=== PATIENT | female | born 1990 | race Caucasian/White ===

== ENCOUNTER 2020-05-04 23:12 | Emergency (ER) | payer MEDICAID, SELFPAY ==
[2020-05-04 23:15] VITALS: BP 169/86; PULSE 79; RESP 16; TEMP 36.7; O2SAT 100; BMI 53.2
--- NOTE | 2020-05-05 00:01 | ED_ITS ---
HPI - Dental/Oral General: Chief complaint: Dental/Oral Stated complaint: oral pain Time Seen by Provider: 05/04/20 23:33 History of Present Illness: HPI Narrative: 29-year-old female patient presents to the emergency room with dental pain. She reports history of dental avulsion approximately 1 to 2 months prior. She states dental pain started at noon today . She has attempted [id number] Orajel and ibuprofen. She does not have a dentist MD Complaint: tooth pain Teeth map: 1. Duration: constant Severity: moderate Relieving factors: NSAIDs Exacerbating factors: chewing, cold and heat Context: history of dental caries and poor dental care Associated symptoms: Reports no associated symptoms; Denies fever(s) Treatment prior to arrival: topical analgesic Review of Systems General: Reports: 10 or more systems reviewed and unremarkable except in HPI and below Const: Denies: fever(s), chills or diaphoresis Eyes: Denies: blurry vision or eye redness ENMT: Reports: dental pain; Denies: throat pain, dry mouth, disequilibrium or nasal discharge Card: Denies: chest pain, palpitations or irregular heart rhythm Resp: Denies: dyspnea, productive cough, non-productive cough or wheezing GI: Denies: abdominal pain, nausea or vomiting : Denies: difficulty voiding or dysuria Musc: Denies: back pain Skin/Breast: Denies: rash or pruritus Neuro: Denies: headache(s), weakness in extremities or behavioral changes Psych: Denies: anxiety or depression Hakan/Lymph: Denies: easy bruising PFS ED PFSH: Social History (Updated 11/26/19 @ 17:12 by Jade Pavon LPN) Smoking and tobacco status: current every day smoker Female Reproductive History: Date of last menstrual period: 03/30/20 Physical Exam Const: COMMON NORMALS: no acute distress, patient oriented x3, healthy appearing and alert GENERAL APPEARANCE: cooperative, comfortable and well hydrated HENMT: COMMON NORMALS: normocephalic, atraumatic, Normal external nose present and moist oral mucous membranes HEAD & SCALP: normal to inspection, normocephalic and atraumatic FACE & SINUS: normal facial exam, sinuses nontender and face symmetric; no sinus tenderness NOSE: Normal external nose present MOUTH: Normal oral and palatal mucosa present TEETH & GINGIVA IMAGES: 1. Gumline edema with dental avulsion and caries present. Suspect abscess. THROAT: posterior oropharynx normal Eye: COMMON NORMALS: Equal, round and reactive pupils present and EOMs intact bilaterally GENERAL EYE: appearance normal, both eyes and all related structures PUPIL: Yes Equal, round and reactive pupils present Neck/C-Spine: COMMON NORMALS: full ROM and no lymphadenopathy GENERAL: Yes normal visual inspection and Yes trachea midline CERVICAL SPINE: Yes cervical ROM normal Lymph: LYMPHATIC: no lymphadenopathy noted Chest: COMMONS NORMALS: normal inspection of the chest Resp: COMMON NORMALS: normal respiratory effort and clear to auscultation bilaterally AUSCULTATION: clear to auscultation bilaterally Cardio: COMMON NORMALS: regular rhythm, S1 normal heart sound present and S2 normal heart sound present RHYTHM: regular rhythm HEART SOUNDS: S1 normal heart sound present and S2 normal heart sound present GI: COMMON NORMALS: Soft to palpation and non-tender INSPECTION: Yes normal to inspection PALPATION: Yes Soft to palpation : COMMON NORMALS: Yes no CVA tenderness BLADDER/KIDNEY EXAM: Yes no CVA tenderness Back/Pelvis: COMMON NORMALS: no CVA tenderness and thoracic and lumbar spine normal to inspection Extremity: COMMON NORMALS: normal to inspection and capillary refill normal Neuro: COMMON NORMALS: patient oriented x3 and no focal motor deficits SENSORIUM/ORIENTATION: Yes alert Psych: COMMON NORMALS: mental status grossly normal, Normal thought process present and cooperative ACTIVITY/MOTOR BEHAVIOR: Yes appropriate eye contact THOUGHT PROCESS: Normal thought process present Skin: COMMON NORMALS: no rashes or lesions noted and turgor normal GENERAL SKIN EXAM: no rashes or lesions noted and turgor normal Course Vital Signs: Vital signs: Vital Signs Temperature 98.0 F 05/04/20 23:15 Pulse Rate 79 05/04/20 23:15 Respiratory Rate 16 05/04/20 23:15 Blood Pressure 169/86 05/04/20 23:15 Pulse Oximetry 100 05/04/20 23:15 Discharge Plan Discharge Patient Disposition: Home Clinical Impression: Dental caries, Dental abscess, Toothache Condition: Stable Prescriptions: New clindamycin HCl 300 mg capsule 300 mg PO QID 10 Days Qty: 40 RF: 0 Lidocaine Viscous 2 % solution 10 ml topical Q3H PRN (Reason: dental pain) Qty: 15 RF: 0 Discharge Orders: Discharge Order (Routine); Ordered 05/05/20 Ordered By: Nery Vazquez Referrals: Lizzette Ralph APN [Primary Care Provider] - Discharge Diet: GI Soft Discharge Activity: Resume usual activity Patient Instructions: Dental Abscess (ED), Dental Caries (ED), Toothache (ED) Activity Restrictions/Additional Instructions: Return to the emergency department if you develop difficulty breathing, swelling under the chin or redness of the face. 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
[2020-05-05] MEDS: clindamycin 150 mg Capsule 300 MG PO (00:32)
[2020-05-05] MEDS: ketorolac 60 mg/2 mL INJ IM (00:33)
== END 2020-05-05 00:54 | disposition home or self-care (01) ==
PROVIDERS: Emergency Provider Nurse Practitioner Family; PCP Nurse Practitioner
DX: K02.9 Dental caries, unspecified (principal); K04.7 Periapical abscess without sinus; F17.210 Nicotine dependence, cigarettes, uncomplicated
CPT/HCPCS: 12345; 96372; 99281; 99283; J1885

== ENCOUNTER → 2020-06-09 14:46 | Outpatient (BNVA) | payer OTHER, SELFPAY | PROVIDERS: PCP Nurse Practitioner; Visit Provider Nurse Practitioner Family | DX: Z20.828 Contact with and (suspected) exposure to other viral communicable diseases (principal) | CPT/HCPCS: 87635 ==

== ENCOUNTER → 2021-04-30 09:42 | Outpatient (BNVA) | payer MEDICAID, SELFPAY | PROVIDERS: PCP Nurse Practitioner; Visit Provider Nurse Practitioner Family | DX: Z20.822 Contact with and (suspected) exposure to COVID-19 (principal) | CPT/HCPCS: 87635 ==

== ENCOUNTER 2021-06-13 17:09 | Emergency (ER) | payer MEDICAID, SELFPAY ==
[2021-06-13 17:32] VITALS: BP 166/103; PULSE 69; RESP 12; TEMP 37.2; O2SAT 94; BMI 61.5
--- NOTE | 2021-06-13 17:37 | XRR_ITS ---
PROCEDURE INFORMATION: Exam: XR Chest Exam date and time: 06/13/2021 5:37 PM Age: 31 years old Clinical indication: Cough; Additional info: Cough, SOB TECHNIQUE: Imaging protocol: XR of the chest. Views: 1 view. Total images: 1 COMPARISON: CT Abdomen/Pelvis Renal [id number] 06/26/2016 9:31 PM FINDINGS: Lungs: No visible active interstitial or alveolar airspace disease. Pleural spaces: Unremarkable. No pleural effusion. No pneumothorax. Heart/Mediastinum: Cardiac structures and configuration with cardiac size upper limits of normal. Bones/joints: Unremarkable. Other findings: Marked obesity. XR/XR chest 1V portable [id number] IMPRESSION: Nonacute.
[2021-06-13 21:06] LABS: Adenovirus Not Detected (NOT DETECT); Chlamydia Pneumoniae Not Detected (NOT DETECT); Coronavirus 229E,HKU1,NL63,OC4 Not Detected (NOT DETECT); Human Metapneumovirus Detected (NOT DETECT); Human Rhinovirus/Enterovirus Not Detected (NOT DETECT); Influenza A Not Detected (NOT DETECT); Influenza A H1 Not Detected (NOT DETECT); Influenza A H1-2009 Not Detected (NOT DETECT); Influenza A H3 Not Detected (NOT DETECT); Influenza B Not Detected (NOT DETECT); Mycoplasma Pneumoniae Not Detected (NOT DETECT); Parainfluenza Virus Type 1 Not Detected (NOT DETECT); Parainfluenza Virus Type 2 Not Detected (NOT DETECT); Parainfluenza Virus Type 3 Not Detected (NOT DETECT); Parainfluenza Virus Type 4 Not Detected (NOT DETECT); Respiratory Syncytial Virus A Not Detected (NOT DETECT); Respiratory Syncytial Virus B Not Detected (NOT DETECT); SARS-COV-2 Not Detected (NOT DETECT)
[2021-06-13 21:08] LABS: Human Metapneumovirus Detected (NOT DETECT); Human Rhinovirus/Enterovirus Not Detected (NOT DETECT); Results from Genmark
--- NOTE | 2021-06-13 21:50 | W.ED.FEVER ---
Documented by User: WIL Mccabe 06/13/21 22:26 HPI - Fever General: Chief Complaint: Fever Stated Complaint: n/v, fever, cough Time Seen by Provider: 06/13/21 21:49 History of Present Illness: HPI Narrative: 31-year-old female comes in today with complaints of cough and fever for the last 2 days. Patient appears mildly unwell but not toxic. Patient appears no acute distress. Patient denies any chronic medical problems or recurrent respiratory infections. Patient does have a history of smoking which she stopped 1 year ago. Patient also reports she had to use inhalers when she was a teenager. Review of Systems General: Reports: 10 or more systems reviewed and unremarkable except in HPI and below Const: Reports: fever(s) Resp: Reports: non-productive cough PFSH ED PFSH: Social History (Updated 04/30/21 @ 08:24 by Nydia Alonzo NP) Smoking and tobacco status: former smoker Female Reproductive History: Date of last menstrual period: 03/30/20 Physical Exam Const: COMMON NORMALS: no acute distress and patient oriented x3 GENERAL APPEARANCE: cooperative HENMT: COMMON NORMALS: normocephalic, TM's normal bilaterally and Normal external nose present HEAD & SCALP: normal to inspection and normocephalic NOSE: Normal external nose present TYMPANIC MEMBRANE: TM's normal bilaterally MOUTH: Normal oral and palatal mucosa present THROAT: posterior oropharynx normal Eye: GENERAL EYE: appearance normal, both eyes and all related structures Neck/C-Spine: COMMON NORMALS: full ROM Lymph: LYMPHATIC: no lymphadenopathy noted Chest: COMMONS NORMALS: normal inspection of the chest Resp: COMMON NORMALS: normal respiratory effort and clear to auscultation bilaterally EFFORT & INSPECTION: Yes able to speak in complete sentences AUSCULTATION: clear to auscultation bilaterally Cardio: COMMON NORMALS: regular rate and regular rhythm RATE: regular rate RHYTHM: regular rhythm GI: COMMON NORMALS: non-tender Extremity: COMMON NORMALS: normal to inspection Neuro: COMMON NORMALS: patient oriented x3 and moves all extremities Psych: COMMON NORMALS: mental status grossly normal and cooperative Skin: COMMON NORMALS: no rashes or lesions noted GENERAL SKIN EXAM: no rashes or lesions noted Course Vital Signs: Vital signs: Vital Signs Temperature 98.3 F 06/13/21 22:08 Pulse Rate 66 06/13/21 22:08 Respiratory Rate 18 06/13/21 22:08 Blood Pressure 155/90 06/13/21 22:08 Pulse Oximetry 97 06/13/21 22:08 MDM - Fever MDM Narrative: Medical decision making narrative: Patient comes in today with cough and fever for the last 2 to 3 days. On exam patient appears mildly unwell but not toxic. Lungs are clear to auscultation. Posterior pharynx is pink and moist. No nasal drainage is noted. Patient does have a mild wheeze that clears with cough. Differential diagnosis includes asthma, viral syndrome, bronchitis. COVID-19 test was negative. Chest x-ray did not show any infiltrates. Reviewed exam with patient we will treat with clindamycin 304 times a day for the next 7 days. Patient was given 1 dose of dexamethasone 8 mg in the ER. Patient will also be put on albuterol 2 puffs every 4 hours as needed for cough or shortness of breath. Patient reported understanding of care plan need for follow-up or return to the ER. Lab Data: Labs: Lab Results 06/13/21 06/13/21 19:20 21:07 Coronavirus 229E ( PCR) Not detected (NOT DETECT) Human Metapneumovi r PCR Detected A (NOT DETECT) Entero/Rhino (PCR) Not detected (NOT DETECT) SARS-CoV-2 (PCR) Not detected (NOT DETECT) Discharge Plan Discharge Patient Disposition: Home Clinical Impression: Acute bronchitis Qualifiers: Bronchitis organism: unspecified organism Qualified Code(s): J20.9 - Acute bronchitis, unspecified Condition: Stable Prescriptions: New clindamycin HCl 300 mg capsule 300 mg PO QID 7 Days Qty: 28 RF: 0 Discharge Orders: Discharge ED (Routine); Ordered 06/13/21 Ordered By: Jann Vega Discharge Diet: Usual diet Discharge Activity: Increase activity as tolerated Patient Instructions: Acute Bronchitis (ED) Activity Restrictions/Additional Instructions: Drink plenty of fluids. Take antibiotics as directed. Follow-up with primary care in 3 days for recheck. Return to the ER for worsening symptoms or new concerns. Coding Level of Care Code ED Medical Accounts Receivable Specialist for Lorena Fwd Exam Comprehensive Documented by User: Dallas Chandra DO 06/14/21 02:09 HPI - Fever General: Chief Complaint: Fever Stated Complaint: n/v, fever, cough Time Seen by Provider: 06/13/21 21:49 PFSH ED PFSH: Social History (Updated 04/30/21 @ 08:24 by Nydia Alonzo NP) Smoking and tobacco status: former smoker Course Vital Signs: Vital signs: Vital Signs Temperature 98.3 F 06/13/21 22:08 Pulse Rate 66 06/13/21 22:08 Respiratory Rate 18 06/13/21 22:08 Blood Pressure 155/90 06/13/21 22:08 Pulse Oximetry 97 06/13/21 22:08 MDM - Fever MDM Narrative: Medical decision making narrative: This patient was originally seen by WIL Otto. I agree with his history, evaluation, and treatment. Lab Data: Labs: Lab Results 06/13/21 06/13/21 19:20 21:07 Coronavirus 229E ( PCR) Not detected (NOT DETECT) Human Metapneumovi r PCR Detected A (NOT DETECT) Entero/Rhino (PCR) Not detected (NOT DETECT) SARS-CoV-2 (PCR) Not detected (NOT DETECT) Discharge Plan Discharge Patient Disposition: Home Clinical Impression: Acute bronchitis Qualifiers: Bronchitis organism: unspecified organism Qualified Code(s): J20.9 - Acute bronchitis, unspecified Condition: Stable Prescriptions: New clindamycin HCl 300 mg capsule 300 mg PO QID 7 Days Qty: 28 RF: 0 Discharge Orders: Discharge ED (Routine); Ordered 06/13/21 Ordered By: Jann Vega Discharge Diet: Usual diet Discharge Activity: Increase activity as tolerated Patient Instructions: Acute Bronchitis (ED) Activity Restrictions/Additional Instructions: Drink plenty of fluids. Take antibiotics as directed. Follow-up with primary care in 3 days for recheck. Return to the ER for worsening symptoms or new concerns. Coding Level of Care Code ED Medical Accounts Receivable Specialist for Lorena Fwd Exam Comprehensive
[2021-06-13] MEDS: clindamycin 150 mg Capsule 300 MG PO (22:02)
[2021-06-13] MEDS: dexamethasone 4 mg Tablet 8 MG PO (22:02)
[2021-06-13 22:08] VITALS: BP 155/90; PULSE 66; RESP 18; TEMP 36.8; O2SAT 97
[2021-06-13] MEDS: albuterol 8 gm MDI 2 PUFF INHALATION (22:10)
== END 2021-06-13 22:09 | disposition home or self-care (01) ==
PROVIDERS: Emergency Medicine; Emergency Provider Nurse Practitioner Family
DX: J20.9 Acute bronchitis, unspecified (principal); Z87.891 Personal history of nicotine dependence; Z20.822 Contact with and (suspected) exposure to COVID-19
CPT/HCPCS: 71045; 87635; 87801; 94640; 99283; J3535; J8540

== ENCOUNTER 2021-11-13 23:10 | Emergency (ER) | payer MEDICAID, SELFPAY ==
--- NOTE | 2021-11-13 23:13 | XRR_ITS ---
PROCEDURE INFORMATION: Exam: XR Chest Exam date and time: 11/13/2021 11:35 PM Age: 31 years old Clinical indication: Chest wall pain; Additional info: Cp TECHNIQUE: Imaging protocol: XR of the chest. Views: 1 view. COMPARISON: CR XR chest 1V portable [id number] 06/13/2021 9:43 PM FINDINGS: Lungs: Unremarkable. No consolidation. Pleural spaces: Unremarkable. No pleural effusion. No pneumothorax. Heart/Mediastinum: Unremarkable. No cardiomegaly. Bones/joints: Unremarkable. XR/XR chest 1V portable [id number] IMPRESSION: No acute findings.
--- NOTE | 2021-11-13 23:13 | ECG_ITS ---
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 Measurements Intervals [place] Rate: 91 P: 53 KS: 138 QRS: 38 QRSD: 103 T: 54 QT: 346 QTc: 426 Interpretive Statements SINUS RHYTHM No previous ECG available for comparison Electronically Signed On 11-14-2021 20:28:03 CDT by Stefan Alonzo M.D. [id number]
[2021-11-13 23:26] VITALS: BP 166/99; PULSE 89; RESP 18; TEMP 36.8; O2SAT 98; BMI 61.5
[2021-11-13 23:38] LABS: Basophils % 0.3 %; Eosinophils # 0.1 10^3/uL (0.0-0.8); Eosinophils % 1.2 %; Hematocrit 41.5 % (37.0-47.0); Hemoglobin 12.7 g/dL (11.5-15.3); Lymphocytes # 2.3 10^3/uL (0.8-4.8); Lymphocytes % 26.2 %; Mean Corpuscular HGB Conc 30.6 g/dL (30.0-36.0); Mean Corpuscular Hemoglobin 25.1 pg (28.0-34.0); Mean Platelet Volume 10.8 fL (7.4-10.4); Monocytes # 0.4 10^3/uL (0.2-0.9); Monocytes % 4.6 %; Neutrophils # 5.98 10^3/uL (1.8-7.7); Neutrophils % 67.5 %; Nucleated Red Blood Cells % 0 %; Platelet Count 298 10^3/cmm (130-400); Red Blood Count 5.06 10^6/uL (4.1-5.3); Red Cell Distribution Width 14.6 % (12.1-15.1); White Blood Count 8.9 10^3/uL (4.0-10.0)
[2021-11-13 23:45] VITALS: BP 159/76; PULSE 90; RESP 22; O2SAT 100
--- NOTE | 2021-11-13 23:56 | ED_ITS ---
HPI - Chest Pain General: Chief Complaint: Chest Pain Stated Complaint: CP Time Seen by Provider: 11/13/21 23:25 Source: patient History of Present Illness: 31-year-old female with no prior history of heart disease or other medical problems. She presents with chest discomfort that started this evening while she was working. 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 This was between 7 and 8pm she says. Pain is sharp, located in the lower chest and radiates to the sides of her chest bilaterally. She notes for the past couple of days, she has had some dizziness, blurry vision. No fever. No cough. She is not really short of breath. Pain seems to come and go. She is having no pain currently. MD complaint: chest pain Pertinent past history: other Onset (ago): hour(s) Prior episodes: No Onset: during exertion Pain location: substernal and epigastric Pain radiation: other Quality: sharp Relieving factors: nothing Exacerbating factors: nothing Associated symptoms: Reports leg edema (Chronic bilateral); Deny abdominal pain, diaphoresis, dyspnea or fever(s) Review of Systems Const: Denies: fever(s) or diaphoresis Eyes: Reports: change in vision ENMT: Denies: throat pain Card: Reports: chest pain Resp: Denies: dyspnea GI: Denies: abdominal pain Musc: Denies: back pain Neuro: Reports: dizziness [facility] ED PFSH: Social History Smoking and tobacco status: former smoker Female Reproductive History: Date of last menstrual period: 09/13/21 Physical Exam Const: COMMON NORMALS: no acute distress GENERAL APPEARANCE: cooperative; not ill appearing NUTRITIONAL APPEARANCE: obese HENMT: COMMON NORMALS: normocephalic, atraumatic and Normal external nose present HEAD & SCALP: normocephalic and atraumatic FACE & SINUS: normal facial exam and face symmetric NOSE: Normal external nose present Eye: COMMON NORMALS: Equal, round and reactive pupils present and EOMs intact bilaterally PUPIL: Yes Equal, round and reactive pupils present Neck/C-Spine: GENERAL: Yes trachea midline Chest: CHEST: Yes Symmetrical chest wall rise Resp: COMMON NORMALS: normal respiratory effort, No use of accessory muscles and clear to auscultation bilaterally AUSCULTATION: clear to auscultation bilaterally Cardio: COMMON NORMALS: regular rate and regular rhythm RATE: regular rate RHYTHM: regular rhythm GI: COMMON NORMALS: Normal to inspection, nondistended, normoactive bowel tam nds present, Soft to palpation and non-tender PALPATION: Yes Soft to palp ation Extremity: COMMON NORMALS: normal to inspection and no pedal edema Neuro: ADONIS COMA SCALE: document GCS findings Adonis coma scale eye opening: Spontaneous Carey coma scale verbal response: Orientated Carey coma scale motor response: Obey commands Carey coma scale total score: 15 Course Vital Signs: Vital signs: Vital Signs Temperature 98.2 F 11/13/21 23: Pulse Rate 89 11/13/21 23: Respiratory Rate 18 11/13/21 23: Blood Pressure 166/99 11/13/21 23: Pulse Oximetry 98 11/13/21 23:26 MDM - Chest Pain Medical Decision Making EKG shows a normal sinus rhythm with normal axis and intervals. Rate is 90. No ST changes chest x-ray is negative. CBC is normal. Potassium is 3.4. Troponin at baseline is 6. She has had pain for several hours, 1 would expect this to be on the rise by now. Her lipase and liver enzymes are benign as well. She has a nontender belly. She does have a some reproducible tenderness to the chest wall. Some of her symptoms sound like they could be GI related. She will be discharged Lab Data : 11/13/21 23:30 11/13/21 23:30 Radiology Impressions Chest X-Ray 11/13/21 23:13 IMPRESSION: No acute findings. Laboratory Results WBC 8.9 10^3/uL (4.0-10.0) 11/13/21 23:30 RBC 5.06 10^6/uL (4.1-5.3) 11/13/21 23:30 Hgb 12.7 g/dL (11.5-15.3) 11/13/21 23: Hct 41.5 % (37.0-47.0) 11/13/21 23: MCV 82.0 fl (81-99) 11/13/21 23: MCH 25.1 pg (28.0-34.0) L 11/13/21 23: MCHC 30.6 g/dL (30.0-36.0) 11/13/21: RDW 14.6 % (12.1-15.1) 11/13/21 23: Plt Count 298 10^3/cmm (130-400) 11/13/21 23: MPV 10.8 fL (7.4-10.4) H 11/13/21 23: Neut % (Auto) 67.5 % 11/13/21 23: Lymph % (Auto) 26.2 % 11/13/21 23: Charlton % (Auto) 4.6 % 11/13/21 23: Eos % (Auto) 1.2 % 11/13/21 23: Baso % (Auto) 0.3 % 11/13/21: Neut # (Auto) 5.98 10^3/uL (1.8-7.7) 11/13/21: Lymph # (Auto) 2.3 10^3/uL (0.8-4.8) 11/13/21 23: Charlton # (Auto) 0.4 10^3/uL (0.2-0.9) 11/13/21 23: Eos # (Auto) 0.1 10^3/uL (0.0-0.8) 11/13/21 23: Baso # (Auto) 0.0 10^3/uL (0.0-0.1) 11/13/21 23: Nucleated RBC % (auto) 0 % 11/13/21 23: Nucleated RBCs # 0.0 /100WBC 11/13/21 23: Sodium 141 mmol/L (136-145) 11/13/21 23: Potassium 3.4 mmol/L (3.5-5.1) L 11/13/21 23: Chloride 103 mmol/L (98-107) 11/13/21 23: Carbon Dioxide 24 mmol/L (22-29) 11/13/21 23: Anion Gap 17.4 (5-19) 11/13/21 23:30 BUN 14 mg/dL (6-20) 11/13/21 23:30 Creatinine 0.6 mg/dL (0.5-0.9) 11/13/21 23:30 GFR Calculation 117.4 mL/min (90-130) 11/13/21 23:30 Glucose 96 mg/dL (65-115) 11/13/21 23:30 Calculated Osmolality 292 mOsm/kg (285-295) 11/13/21 23:30 Calcium 9.2 mg/dL (8.5-10.5) 11/13/21 23:30 Total Bilirubin 0.3 mg/dL (0.15-1.2) 11/13/21 23:30 AST 18 U/L (0-32) 11/13/21 23:30 ALT 32 U/L (0-33) 11/13/21 23:30 Alkaline Phosphatase 74 IU/L (35-105) 11/13/21 23: Troponin T Baseline 6 ng/L (0-10) 11/13/21 23: Total Protein 7.5 g/dL (6.6-8.7) 11/13/21 23: Albumin 4.4 g/dL (3.5-5.2) 11/13/21: Globulin 3.1 g/dL (1.3-4.6) 11/13/21 23: Lipase 10 U/L (13-60) L 11/13/21 23:30 HCG, Qual Negative (Negative) 11/13/21 23:30 Discharge Plan Discharge Patient Disposition: Home Clinical Impression: Chest pain Condition: Stable Prescriptions: New Prevacid 30 mg capsule,delayed release(DR/EC) 30 mg PO DAILY Qty: 30 0RF Discharge Orders: Discharge ED (Routine); Ordered 11/14/21 Ordered By: Dallas Chandra Patient Instructions: Chest Pain (ED) Activity Restrictions/Additional Instructions: Return for repeated episodes of chest discomfort, shortness of breath, fever, vomiting liquids, other concerning symptoms. Medication as directed. See your doctor in follow-up Coding Level of Care Code ED Neurology Director for Margueriteg Fwd Exam Comprehensive
[2021-11-14] VITALS: BP 161/87; PULSE 85; RESP 18; O2SAT 99
[2021-11-14 00:07] LABS: Alanine Aminotransferase 32 U/L (0-33); Albumin Level 4.4 g/dL (3.5-5.2); Alkaline Phosphatase 74 IU/L (35-105); Anion Gap 17.4 (5-19); Aspartate Amino Transferase 18 U/L (0-32); Blood Urea Nitrogen 14 mg/dL (6-20); Calcium 9.2 mg/dL (8.5-10.5); Carbon Dioxide 24 mmol/L (22-29); Chloride 103 mmol/L (98-107); Globulin 3.1 g/dL (1.3-4.6); Glomerular Filtration Rate 117.4 mL/min (90-130); Glucose 96 mg/dL (65-115); Osmolality Calculated 292 mOsm/kg (285-295); Potassium 3.4 mmol/L (3.5-5.1); Sodium 141 mmol/L (136-145); Total Bilirubin 0.3 mg/dL (0.15-1.2); Total Protein 7.5 g/dL (6.6-8.7); Troponin(5th) Baseline 6 ng/L (0-10)
[2021-11-14 00:11] LABS: HCG, Serum Qual Negative (Negative); Lipase 10 U/L (13-60)
[2021-11-14 00:30] VITALS: BP 130/77; PULSE 83; RESP 24; O2SAT 97
[2021-11-14 00:55] VITALS: BP 135/83; PULSE 76; RESP 18; O2SAT 99
== END 2021-11-14 01:03 | disposition home or self-care (01) ==
PROVIDERS: Physician Assistant; Emergency Provider Emergency Medicine
DX: R07.9 Chest pain, unspecified (principal); Z87.891 Personal history of nicotine dependence
CPT/HCPCS: 71045; 80053; 83690; 84484; 84703; 85025; 93005; 99284

== ENCOUNTER → 2023-07-28 18:34 | Outpatient (BNVA) | payer MEDICAID, SELFPAY | PROVIDERS: PCP Nurse Practitioner Family; Visit Provider Nurse Practitioner | DX: S99.912A Unspecified injury of left ankle, initial encounter (principal); X58.XXXA Exposure to other specified factors, initial encounter | CPT/HCPCS: 73610 ==

== ENCOUNTER → 2024-05-08 11:42 | Outpatient (BNVA) | payer MEDICAID, SELFPAY | PROVIDERS: PCP Nurse Practitioner Family; Visit Provider Family Medicine | DX: J02.9 Acute pharyngitis, unspecified (principal) | CPT/HCPCS: 87071; 87880 ==

== ENCOUNTER 2024-11-16 17:43 | Emergency (ER) | payer MEDICAID, SELFPAY ==
[2024-11-16 17:49] VITALS: BP 145/72; PULSE 85; RESP 20; TEMP 36.4; O2SAT 98
--- NOTE | 2024-11-16 18:10 | XRR_ITS ---
PROCEDURE INFORMATION: Exam: XR Lumbosacral Spine Exam date and time: 11/16/2024 8:03 PM Age: 34 years old Clinical indication: Lumbago with sciatica; Right; Lower back pain with RT sciatica; HX of same pain previously-no known injury TECHNIQUE: Imaging protocol: Radiologic exam of the lumbosacral spine. Views: 2 or 3 views. COMPARISON: No relevant prior studies available. FINDINGS: Bones/joints: [id number] L5/S1 disc space narrowing. Soft tissues: Unremarkable. XR/XR lumbar spine 2-3V* [id number] IMPRESSION: [id number] L5/S1 disc space narrowing.
[2024-11-16 19:53] LABS: HCG, Serum Qual Negative (Negative)
[2024-11-16 20:46] LABS: Bilirubin Urine Negative (Negative); Blood Urine Negative (Negative); Glucose Urine UA Negative (Normal); Ketones Urine Negative (Negative); Leukocyte Esterase Urine 1+ (Negative); Nitrate Urine Negative (Negative); Protein Urine Negative (Negative); Specific Gravity, Urine 1.024 (1.005-1.030); Urine Appearance Turbid (CLEAR); Urine Color Yellow (Yellow)
[2024-11-16 20:51] LABS: Add Urine Microscopic? YES; Bacteria Urine Trace /hpf; Hyaline Casts Urine 1.65 /lpf; RBC Urine 0-2 /hpf (0-2); Squamous Epithelial Cell Urine 0-5 /hpf (0-5)
--- NOTE | 2024-11-16 23:12 | W.ED.BACK ---
HPI - Back Pain/Injury General: Chief Complaint: Back Pain/Injury Stated Complaint: lower back pain Time Seen by Provider: 11/16/24 22:47 History of Present Illness: 34-year-old female with a history of back pain on and off. She says she has had several bouts of sciatica since she was 17 years old. Related Data Home Medications ?Medication ?Instructions ?Recorded ?Confirmed albuterol sulfate 90 mcg/actuation 1 inh inhalation QID 12/23/21 05/08/24 aerosol inhaler (Ventolin HFA) labetalol 200 mg tablet 200 mg PO BID 05/17/23 05/08/24 Previous Rx's ?Medication ?Instructions ?Recorded cephalexin 500 mg capsule 500 mg PO TID 7 days #21 caps 11/16/24 cyclobenzaprine 10 mg tablet 10 mg PO Q8H #14 tabs 11/16/24 ketorolac 10 mg tablet 10 mg PO TID PRN pain #10 tabs 11/16/24 Allergies Allergy/AdvReac Type Severity Reaction Status Date / Time adhesive Allergy Unknown Verified 11/16/24 17:52 amoxicillin Allergy ALGY-Hives Verified 05/08/24 11:35 Penicillins Allergy ALGY-Hives Verified 05/08/24 11:35 Sulfa (Sulfonamide Allergy ALGY-Difficulty Verified 05/08/24 11:35 Antibiotics) Breathing PFSH ED PFSH: Social History Smoking and tobacco/nicotine status: unknown if used tobacco/nicotine Physical Exam Const: COMMON NORMALS: no acute distress GENERAL APPEARANCE: cooperative; not ill appearing and not frail appearing Eye: COMMON NORMALS: Equal, round and reactive pupils present and EOMs intact bilaterally PUPIL: Yes Equal, round and reactive pupils present Neck/C-Spine: GENERAL: Yes trachea midline Chest: CHEST: Yes Symmetrical chest wall rise Resp: COMMON NORMALS: normal respiratory effort, No retractions and No use of accessory muscles Cardio: COMMON NORMALS: regular rate and regular rhythm RATE: regular rate RHYTHM: regular rhythm Back/Pelvis: OTHER: Exam the lumbar spine reveals tenderness at L5-S1 in the midline and just to the right of midline. There is no left-sided tenderness. Minimal paraspinal tenderness. No other significant lumbar midline tenderness. Straight leg raise test is positive for radicular pain to the ankle on the right. Not the left. Sensation is intact. Pulses are normal. Extremity: COMMON NORMALS: no pedal edema Neuro: ADONIS COMA SCALE: document GCS findings Dahlgren coma scale eye opening: Spontaneous Dahlgren coma scale verbal response: Orientated Adonis coma scale motor response: Obey commands Dahlgren coma scale total score: 15 SENSORY EXAM: Yes extremities (intact) Psych: COMMON NORMALS: speech normal SPEECH: Yes normal speech Skin: COMMON NORMALS: no rashes or lesions noted GENERAL SKIN EXAM: no rashes or lesions noted Course Vital Signs: Vital signs: Vital Signs Temperature 97.6 F 11/16/24 17:49 Pulse Rate 89 11/16/24 23:35 Respiratory Rate 20 H 11/16/24 17:49 Blood Pressure 124/80 11/16/24 23:35 Pulse Oximetry 97 11/16/24 23:35 Oxygen Delivery Me thod Room Air 11/16/24 17:49 MDM - Back Pain/Injury Medical Decision Making No saddle anesthesia. No red flag symptoms otherwise such as loss of bowel or bladder control, etc. She does have mild L5-S1 disc space narrowing. Offered steroids, but she declined stating they cause palpitations. She requested anti-inflammatories and muscle relaxers which are given. Outpatient follow-up. Return if worsening. Labs Radiology Impressions Lumbar Spine X-Ray 11/16/24 18:10 IMPRESSION: [id number] L5/S1 disc space narrowing. Laboratory Results HCG, Qual Negative (Negative) 11/16/24 19:32 Urine Color Yellow (Yellow) 11/16/24 20:38 Urine Appearance Turbid (CLEAR) A 11/16/24 20:38 Urine pH 7.0 (5-7) 11/16/24 20:38 Ur Specific [place] 1.024 (1.005-1.030) 11/16/24 20:38 Urine Protein Negative (Negative) 11/16/24 20:38 Urine Glucose (UA) Negative (Normal) 11/16/24 20:38 Urine Ketones Negative (Negative) 11/16/24 20:38 Urine Blood Negative (Negative) 11/16/24 20:38 Urine Nitrate Negative (Negative) 11/16/24 20:38 Urine Bilirubin Negative (Negative) 11/16/24 20:38 Urine Urobilinogen 1.0 mg/dL (Negative) 11/16/24 20:38 Ur Leukocyte Esterase 1+ (Negative) A 11/16/24 20:38 Urine RBC 0-2 /hpf (0-2) 11/16/24 20:38 Urine WBC 11-20 /hpf (0-5) H 11/16/24 20:38 Ur Squamous Epith Cells 0-5 /hpf (0-5) 11/16/24 20:38 Amorphous Sediment Not Reportable 11/16/24 20:38 Urine Bacteria Trace /hpf (NONE) 11/16/24 20:38 Hyaline Casts 1.65 /lpf 11/16/24 20:38 All radiology interpretation(s) finalized by discharge Discharge Plan Discharge Patient Disposition: Home Clinical Impression: Sciatica, UTI (urinary tract infection) Condition: Stable Prescriptions: New ketorolac 10 mg tablet 10 mg PO TID PRN (Reason: pain) Qty: 10 0RF cyclobenzaprine 10 mg tablet 10 mg PO Q8H Qty: 14 0RF cephalexin 500 mg capsule 500 mg PO TID 7 Days Qty: 21 0RF No Action albuterol sulfate [Ventolin HFA] 90 mcg/actuation HFA aerosol inhaler 1 inh inhalation QID labetalol 200 mg tablet 200 mg PO BID Discharge Orders: Discharge ED (Routine); Ordered 11/16/24 Ordered By: Dallas Chandra Referrals: Marcy Boyle FNP-C [Primary Care Provider, Family Practice] - 4-7 days Patient Instructions: Urinary Tract Infection in Women (DC), Sciatica (ED), Opioid Safety, Pain Management Print Language: Danish Coding Level of Care Code ED Residential Real Estate Assistant for Lorena Stringer
[2024-11-16] MEDS: orphenadrine 30 mg/mL Inj 2 mL 60 MG IM (23:18)
[2024-11-16] MEDS: ketorolac 60 mg/2 mL INJ IM (23:19)
[2024-11-16 23:35] VITALS: BP 124/80; PULSE 89; O2SAT 97
== END 2024-11-16 23:25 | disposition home or self-care (01) ==
PROVIDERS: Emergency Provider Emergency Medicine; PCP Nurse Practitioner Family
DX: M54.30 Sciatica, unspecified side (principal); N39.0 Urinary tract infection, site not specified
CPT/HCPCS: 36415; 72100; 81001; 84703; 96372; 99284; J1885; J2360

== ENCOUNTER 2024-12-16 03:50 | Emergency (ER) | payer MEDICAID, SELFPAY ==
[2024-12-16 03:52] VITALS: BP 138/80; PULSE 70; RESP 16; TEMP 36.7; O2SAT 97; BMI 58.2
[2024-12-16 04:07] VITALS: BP 126/85; PULSE 78; O2SAT 97
[2024-12-16] MEDS: fluorescein 1 mg Strip EYE-BOTH (04:28)
--- NOTE | 2024-12-16 04:39 | W.ED.ANIMALB ---
HPI - Animal Bite General: Chief Complaint: Animal Bite Stated Complaint: Cat Sratched EYE Time Seen by Provider: 12/16/24 04:08 History of Present Illness: 34-year-old female who came home to her cat earlier this morning, and while playing with the cat, it scratched her right eye and right eyelid. She is experiencing eye pain with some mild blurry vision. Mild pain with eye movement. Related Data Home Medications ?Medication ?Instructions ?Recorded ?Confirmed albuterol sulfate 90 mcg/actuation 1 inh inhalation QID 12/23/21 05/08/24 aerosol inhaler (Ventolin HFA) labetalol 200 mg tablet 200 mg PO BID 05/17/23 05/08/24 Previous Rx's ?Medication ?Instructions ?Recorded cyclobenzaprine 10 mg tablet 10 mg PO Q8H #14 tabs 11/16/24 ketorolac 10 mg tablet 10 mg PO TID PRN pain #10 tabs 11/16/24 ketorolac 0.4 % eye drops 1 drp ophthalmic (eye) Q6H 4 days 12/16/24 #5 mL polymyxin B sulfate 10,000 1 drp ophthalmic (eye) QID 5 days 12/16/24 unit-trimethoprim 1 mg/mL eye drops #10 mL Allergies Allergy/AdvReac Type Severity Reaction Status Date / Time adhesive Allergy Unknown Verified 11/16/24 17:52 amoxicillin Allergy ALGY-Hives Verified 05/08/24 11:35 Penicillins Allergy ALGY-Hives Verified 05/08/24 11:35 Sulfa (Sulfonamide Allergy ALGY-Difficulty Verified 05/08/24 11:35 Antibiotics) Breathing PFSH ED PFSH: Social History Smoking and tobacco/nicotine status: unknown if used tobacco/nicotine Physical Exam Const: COMMON NORMALS: no acute distress GENERAL APPEARANCE: cooperative; not ill appearing HENMT: COMMON NORMALS: normocephalic, atraumatic and Normal external nose present HEAD & SCALP: normocephalic and atraumatic FACE & SINUS: normal facial exam and face symmetric NOSE: Normal external nose present Eye: COMMON NORMALS: Equal, round and reactive pupils present and EOMs intact bilaterally CORNEA: Yes fluorescein used and other (Abrasion lateral right eye) PUPIL: Yes Equal, round and reactive pupils present Resp: COMMON NORMALS: normal respiratory effort Skin: NARRATIVE SKIN EXAM: Minimal right upper eyelid swelling. No open wounds. Course Vital Signs: Vital signs: Vital Signs Temperature 98.1 F 12/16/24 03:52 Pulse Rate 78 12/16/24 04:07 Respiratory Rate 16 12/16/24 03:52 Blood Pressure 126/85 12/16/24 04:07 Pulse Oximetry 97 12/16/24 04:07 Oxygen Delivery Me thod Room Air 12/16/24 04:07 MDM - Animal Bite Medical Decision Making Corneal abrasion. Treat accordingly No radiology studies performed this visit Discharge Plan Discharge Patient Disposition: Home Clinical Impression: Corneal abrasion, right Condition: Stable Prescriptions: New ketorolac 0.4 % drops 1 drp ophthalmic (eye) Q6H 4 Days Qty: 5 0RF polymyxin B sulf-trimethoprim 10,000 unit- 1 mg/mL drops 1 drp ophthalmic (eye) QID 5 Days Qty: 10 0RF No Action albuterol sulfate [Ventolin HFA] 90 mcg/actuation HFA aerosol inhaler 1 inh inhalation QID labetalol 200 mg tablet 200 mg PO BID ketorolac 10 mg tablet 10 mg PO TID PRN (Reason: pain) Qty: 10 0RF cyclobenzaprine 10 mg tablet 10 mg PO Q8H Qty: 14 0RF Discharge Orders: Discharge ED (Routine); Ordered 12/16/24 Ordered By: Dallas Chandra Referrals: [facility] [Outside] - 1-3 days Patient Instructions: Corneal Abrasion (ED), Opioid Safety, Pain Management, Patient Portal & [facility] Instructions Activity Restrictions/Additional Instructions: Drops to the eye every 4 hours while awake for the next 5 days as indicated. No contacts. Call the eye surgery clinic at the number above later today for a follow-up appointment this week. Return for worsening vision despite treatment, any other concerns. Print Language: Iraqi Coding Level of Care Code ED Director Of Counseling for Lorena Stringer
[2024-12-16 04:48] VITALS: BP 130/84; PULSE 70; O2SAT 96
== END 2024-12-16 04:52 | disposition home or self-care (01) ==
PROVIDERS: Emergency Provider Emergency Medicine
DX: S05.01XA Injury of conjunctiva and corneal abrasion without foreign body, right eye, initial encounter (principal); W55.03XA Scratched by cat, initial encounter
CPT/HCPCS: 99283

== ENCOUNTER 2025-03-18 18:58 | Emergency (ER) | payer MEDICAID, SELFPAY ==
[2025-03-18 19:23] VITALS: BP 176/91; PULSE 80; RESP 18; TEMP 36.7; O2SAT 98; BMI 53.2
[2025-03-18 19:59] LABS: Hematocrit 38.0 % (36-47); Hemoglobin 12.00 g/dL (11.27-16.99); Mean Corpuscular HGB Conc 31.6 g/dL (30-55); Mean Corpuscular Hemoglobin 26.1 pg (27-33); Mean Corpuscular Volume 82.6 fl (85-98); Nucleated Red Blood Cells % 0 %; Platelet Count 295 10^3/cmm (157-399); Red Blood Count 4.60 10^6/uL (3.85-5.65); White Blood Count 7.86 10^3/uL (3.29-11.43)
[2025-03-18 20:00] VITALS: PULSE 74; O2SAT 100
[2025-03-18 20:12] LABS: Glucose Urine UA Negative (Normal); Nitrate Urine Negative (Negative)
[2025-03-18 20:16] LABS: HCG Qualitative Urine. Negative (Negative)
[2025-03-18 20:18] LABS: Alanine Aminotransferase 16 U/L (0-33); Albumin Level 4.1 g/dL (3.5-5.2); Alkaline Phosphatase 74 U/L (35-105); Anion Gap 13.7 (5-19); Aspartate Amino Transferase 11 U/L (0-32); Blood Urea Nitrogen 12 mg/dL (6-20); Calcium 9.2 mg/dL (8.5-10.5); Carbon Dioxide 27 mmol/L (22-29); Chloride 102 mmol/L (98-107); Creatinine Clr Calc Pharmacy 194.2372; Globulin 3.4 g/dL (1.3-4.6); Glucose 103 mg/dL (65-115); Osmolality Calculated 288 mOsm/kg (285-295); Potassium 3.7 mmol/L (3.5-5.1); Sodium 139 mmol/L (136-145); Total Protein 7.5 g/dL (6.6-8.7)
[2025-03-18 20:18] LABS: Specific Gravity, Urine 1.032 (1.005-1.030)
[2025-03-18 20:19] LABS: Lactic Sepsis W/Reflex 1.1 mmol/L (0.5-2.2)
--- NOTE | 2025-03-18 20:26 | ED_ITS ---
HPI - Abdominal Pain 2 General: Chief Complaint: Abdominal Pain Stated Complaint: N/V Pain in rt side/lower back Blood in urine Time Seen by Provider: 03/18/25 19:51 Source: patient Mode of arrival: ambulatory Limitations: no limitations History of Present Illness: Patient is a 34-year-old female who reports the Emergency Department complaining of nausea vomiting as well as pain to her low back and blood in her urine. States that she has a history of UTI and is feels similar just much worse. No abdominal pain however, and though she notes the blood was this morning states that it has since cleared up. She is not endorsing any dysuria. No changes in bowel habits. No fevers or chills, does report a history of ovarian cyst. She does note that walking makes the pain worse as well as movement at the low back. Has not taken any medications for the pain. Does note that the symptoms began this morning and have gradually worsened throughout the day. Her vitals are stable at this time, no other complaints. MD elicited complaint: abdominal pain Onset (ago): hour(s) Pain Consistency: constant Location: L flank and R flank Severity: severe Radiation: back Exacerbating factors: movement Relieving factors: rest Associated Symptoms: Reports hematuria, nausea and vomiting; Denies bloating, change in stool character, chills, constipation, diarrhea, dysuria, fever(s) and hematochezia Related Data Date of Last Menstrual Period: 12/24/24 Home Medications ?Medication ?Instructions ?Recorded ?Confirmed albuterol sulfate 90 mcg/actuation 1 inh inhalation QI D 12/23/21 05/08/24 aerosol inhaler (Ventolin HFA) labetalol 200 mg tablet 200 mg PO BID 05/17/2305/08 Previous Rx's ?Medication ?Instructions ?Recorded cyclobenzaprine 10 mg tablet 10 mg PO Q8H #14 tabs ketorolac 10 mg tablet 10 mg PO TID PRN pain #10 ta bs 11/16/24 ketorolac 10 mg tablet 10 mg PO Q8H PRN pain 5 days #15 03/18/25 tabs ondansetron 4 mg disintegrating 4 mg PO TID PRN nausea and 03/18/25 tablet vomiting #30 tabs Allergies Allergy/AdvReac Type Severity Reaction Status Date / Time adhesive Allergy Unknown Verified 03/18/25 19:30 amoxicillin Allergy ALGY-Hives Verified 03/18/25 19:30 Penicillins Allergy ALGY-Hives Verified 03/18/25 19:30 Sulfa (Sulfonamide Allergy ALGY-Difficulty Verified 03/18/25 19:30 Antibiotics) Breathing Review of Systems 2 General: Reports: 10 or more systems reviewed and unremarkable except in HPI and below Const: Denies: fever(s), chills, change in appetite, change in weight or diaphoresis ENMT: Denies: throat pain or hoarseness Card: Denies: chest pain, palpitations or lightheadedness Resp: Denies: dyspnea, productive cough or wheezing GI: Reports: nausea and vomiting; Denies: abdominal pain, diarrhea, constipation, bloating, change in stool character or hematochezia : Reports: flank pain and hematuria; Denies: difficulty voiding, dysuria, urinary frequency or urinary urgency Musc: Reports: back pain; Denies: neck pain Skin/Breast: Denies: rash or new lesions Neuro: Denies: headache(s) or dizziness PFSH ED 2 PFSH: Social History Smoking and tobacco/nicotine status: unknown if used tobacco/nicotine Female Reproductive History: Date of last menstrual period: 12/24/24 Physical Exam 2 Const: COMMON NORMALS: no acute distress, patient oriented x3, no limitations, alert and well nourished GENERAL APPEARANCE: cooperative and comfortable N UTRITIONAL APPEARANCE: obese (BMI 53) morbidly obese O RIENTATION/CONSCIOUSNESS: Yes awake Neck/C-Spine: COMMON NORMALS: full ROM, supple, no meningeal signs and no JVD Resp: COMMON NORMALS: normal respiratory effort, No retractions, No use of accessory muscles and clear to auscultation bilaterally AUSCULTATION: clear to auscultation bilaterally, no crackles, no rales, no rhonchi and no wheezes Cardio: COMMON NORMALS: no JVD, regular rate, regular rhythm, No gallops present (Cardio), No clicks present (Cardio), No murmurs present (Cardio) and No rub (Cardio) RATE: regular rate RHYTHM: regular rhythm GI: COMMON NORMALS: Soft to palpation, non-tender, No hepatosplenomegaly present and no masses INSPECTION: Yes central obesity AUSCULTATION: Yes normoactive bowel sounds PALPATION: Yes Soft to palpation, No Guarding due to palpation present (GI), No Rigid due to palpation and Yes No hepatosplenomegaly present RECTAL EXAM: deferred Back/Pelvis: OTHER: Reproducible paralumbar muscular tenderness to palpation Extremity: COMMON NORMALS: normal to inspection and full ROM Neuro: COMMON NORMALS: patient oriented x3, moves all extremities, no focal motor deficits and no sensory deficits noted SENSORIUM/ORIENTATION: Yes alert MENINGEAL SIGNS: Yes no meningeal signs Psych: COMMON NORMALS: mental status grossly normal, cooperative and speech normal SPEECH: Yes normal speech Skin: COMMON NORMALS: no rashes or lesions noted GENERAL SKIN EXAM: no rashes or lesions noted Course 2 Vital Signs: Vital signs: Vital Signs Temperature 98.1 F 03/18/25 19:23 Pulse Rate 61 03/18/25 21:17 Respiratory Rate 18 03/18/25 19:23 Blood Pressure 143/100 03/18/25 21:17 Pulse Oximetry 98 03/18/25 21:17 Oxygen Delivery Me thod Room Air 03/18/25 20:00 MDM - Abdominal Pain Medical Decision Making Patient presenting with bilateral flank pain and low back pain, history of UTI stating this feels similar but much worse. Symptoms were sudden onset this morning. No abdominal tenderness to palpation on exam. Morbidly obese appearing but nontoxic. Vitals have been stable. Is given Toradol for pain which helps. Her lab work is all unremarkable including normal CBC, CMP, and urinalysis not showing any signs of infection. With the reported symptoms I feel that an abdominal pelvis CT would be diagnostic at this juncture and with her reported improvement after Toradol suspect that this is chronic musculoskeletal back pain of which she also has a history of. I do think that she is stable for discharge home at this time with outpatient management, but if she has any worsening pain, or onset of other concerning symptoms such as worsening nausea vomiting, or fevers or chills to return to the emergency department for reevaluation. She agrees with this plan at this time. Lab Data 03/18/25 19:50 03/18/25 19:50 Labs/Radiology: Laboratory Results WBC 7.86 10^3/uL (3.29-11.43) 03/18/25 19:50 RBC 4.60 10^6/uL (3.85-5.65) 03/18/25 19:50 Hgb 12.00 g/dL (11.27-16.99) 03/18/25 19:50 Hct 38.0 % (36-47) 03/18/25 19:50 MCV 82.6 fl (85-98) L 03/18/25 19:50 MCH 26.1 pg (27-33) L 03/18/25 19:50 MCHC 31.6 g/dL (30-55) 03/18/25 19:50 RDW 12.9 % (12.1-15.1) 03/18/25 19:50 Plt Count 295 10^3/cmm (157-399) 03/18/25 19:50 MPV 10.3 fL (7.4-10.4) 03/18/25 19:50 Neut % (Auto) 68.7 % 03/18/25 19:50 Lymph % (Auto) 22.6 % 03/18/25 19:50 [place] % (Auto) 5.1 % 03/18/25 19:50 Eos % (Auto) 2.9 % 03/18/25 19:50 Baso % (Auto) 0.4 % 03/18/25 19:50 Neut # (Auto) 5.40 10^3/uL (1.8-7.7) 03/18/25 19:50 Lymph # (Auto) 1.8 10^3/uL (0.8-4.8) 03/18/25 19:50 [place] # (Auto) 0.4 10^3/uL (0.2-0.9) 03/18/25 19:50 Eos # (Auto) 0.2 10^3/uL (0.0-0.8) 03/18/25 19:50 Baso # (Auto) 0.0 10^3/uL (0.0-0.1) 03/18/25 19:50 Nucleated RBC % (auto) 0 % 03/18/25 19:50 Nucleated RBCs # 0.0 /100WBC 03/18/25 19:50 Sodium 139 mmol/L (136-145) 03/18/25 19:50 Potassium 3.7 mmol/L (3.5-5.1) 03/18/25 19:50 Chloride 102 mmol/L (98-107) 03/18/25 19:50 Carbon Dioxide 27 mmol/L (22-29) 03/18/25 19:50 Anion Gap 13.7 (5-19) 03/18/25 19:50 BUN 12 mg/dL (6-20) 03/18/25 19:50 Creatinine 0.6 mg/dL (0.5-0.9) 03/18/25 19:50 GFR Calculation 115.1 mL/min (90-130) 03/18/25 19:50 Glucose 103 mg/dL (65-115) 03/18/25 19:50 Calculated Osmolality 288 mOsm/kg (285-295) 03/18/25 19:50 Lactic Acid 1.1 mmol/L (0.5-2.2) 03/18/25 19:50 Calcium 9.2 mg/dL (8.5-10.5) 03/18/25 19:50 Total Bilirubin 0.3 mg/dL (0.15-1.2) 03/18/25 19:50 AST 11 U/L (0-32) 03/18/25 19:50 ALT 16 U/L (0-33) 03/18/25 19:50 Alkaline Phosphatase 74 U/L (35-105) 03/18/25 19:50 C-Reactive Protein 13.6 mg/L (0.0-4.9) H 03/18/25 19:50 Total Protein 7.5 g/dL (6.6-8.7) 03/18/25 19:50 Albumin 4.1 g/dL (3.5-5.2) 03/18/25 19:50 Globulin 3.4 g/dL (1.3-4.6) 03/18/25 19:50 HCG, Qual Negative (Negative) 03/18/25 20:00 Urine Color Yellow (Yellow) 03/18/25 20:00 Urine Appearance Clear (CLEAR) 03/18/25 20:00 Urine pH 5.0 (5-7) 03/18/25 20:00 Ur Specific [place] 1.032 (1.005-1.030) H 03/18/25 20:00 Urine Protein Trace (Negative) A 03/18/25 20:00 Urine Glucose (UA) Negative (Normal) 03/18/25 20:00 Urine Ketones Trace (Negative) 03/18/25 20:00 Urine Blood Negative (Negative) 03/18/25 20:00 Urine Nitrate Negative (Negative) 03/18/25 20:00 Urine Bilirubin Negative (Negative) 03/18/25 20:00 Urine Urobilinogen 1.0 mg/dL (Negative) 03/18/25 20:00 Ur Leukocyte Esterase Negative (Negative) 03/18/25 20:00 Amorphous Sediment Not Reportable 03/18/25 20:00 No radiology studies performed this visit Discharge Plan Discharge Patient Disposition: Home Clinical Impression: Musculoskeletal back pain Condition: Stable Prescriptions: New ketorolac 10 mg tablet 10 mg PO Q8H PRN (Reason: pain) 5 Days Qty: 15 0RF ondansetron 4 mg tablet,disintegrating 4 mg PO TID PRN (Reason: nausea and vomiting) Qty: 30 0RF No Action albuterol sulfate [Ventolin HFA] 90 mcg/actuation HFA aerosol inhaler 1 inh inhalation QID labetalol 200 mg tablet 200 mg PO BID ketorolac 10 mg tablet 10 mg PO TID PRN (Reason: pain) Qty: 10 0RF cyclobenzaprine 10 mg tablet 10 mg PO Q8H Qty: 14 0RF Discharge Orders: Discharge ED (Routine); Ordered 03/18/25 Ordered By: Iglesia Curiel Referrals: [facility], [Primary Care Provider] Patient Instructions: Patient Portal & [facility] Instructions Activity Restrictions/Additional Instructions: Low Back Pain Discharge Diagnosis: Acute musculoskeletal low back pain and bilateral flank pain, without evidence of infection or other serious pathology. Prognosis and Education: - Acute low back pain is highly likely to improve substantially within the first month, regardless of treatment. Most cases are self-limited and do not require imaging or specialist referral unless symptoms persist or worsen. - No evidence of infection, kidney involvement, or other serious etiology was found on laboratory evaluation. Activity and Self-Care: - Remain active as tolerated. Avoid bed rest; gentle movement and resumption of normal activities are encouraged, even if mild discomfort is present. - Superficial heat (e.g., heating pad or warm compress) may provide moderate pain relief and improve function. - Massage, spinal manipulation, or acupuncture may be considered if pain persists, but evidence for these is less robust. Pharmacologic Management: - Ketorolac (Toradol): Prescribed for short-term pain control. Use the lowest effective dose for the shortest duration necessary, given the risk of gastrointestinal and renal adverse effects. Assess for contraindications (history of peptic ulcer, renal impairment, etc.) before use. - Typical adult dosin mg orally every 4?6 hours as needed, not to exceed 5 days of therapy. Adjust dosing based on renal function and age. - Ondansetron (Zofran): Prescribed for nausea as needed. Standard dosing is 4?8 mg orally every 8 hours as needed. Additional Home Treatment Options: - Acetaminophen may be used in combination with NSAIDs for additional pain relief, though acetaminophen alone is not effective for acute low back pain. - Gentle stretching and aerobic exercise may be initiated as tolerated. - Avoid prolonged inactivity and maintain regular daily routines. Return Precautions: - Seek prompt medical attention for any of the following: - New or worsening weakness, numbness, or tingling in the legs - Loss of bowel or bladder control - Severe, unrelenting pain not responsive to medication - Fever, chills, or other signs of systemic illness - Persistent pain beyond 4?6 weeks, or inability to resume normal activities Follow-Up: - If symptoms do not improve within 2 months, or if there is concern for chronicity, consider referral for supervised exercise or behavioral therapy. - Early reassessment is warranted if pain worsens or new symptoms develop. Summary: - [employer] and [employer] recommend reassurance, education, activity as tolerated, and short-term NSAID use for acute low back pain, with adjunctive nonpharmacologic therapies as appropriate. Print Language: Pashto Coding Level of Care Code ED Carpentry Teacher for Lorena Stringer
[2025-03-18 21:17] VITALS: BP 143/100; PULSE 61; O2SAT 98
== END 2025-03-18 21:20 | disposition home or self-care (01) ==
PROVIDERS: Emergency Medicine; Emergency Provider Physician Assistant
DX: M54.89 Other dorsalgia (principal)
CPT/HCPCS: 36415; 80053; 81001; 81025; 83605; 85025; 86140; 87040; 96372; 99284; J1885

== ENCOUNTER 2025-05-26 15:31 | Emergency (ER) | payer MEDICAID, SELFPAY ==
[2025-05-26 15:34] VITALS: BP 155/98; PULSE 72; TEMP 37; O2SAT 100
--- NOTE | 2025-05-26 15:44 | ED_ITS ---
HPI - Allergic Reaction General: Chief complaint: Allergic Reaction Stated complaint: allergic reaction, tongue swelling Time Seen by Provider: 05/26/25 15:40 Source: patient Mode of arrival: ambulatory Limitations: no limitations History of Present Illness: HPI narrative: Patient is a 34-year-old female presents to ED today with concerns of a possible allergic reaction. Patient states she had a patch of redness to the left side of her face this morning when she left for work. She states the rash has since spread to her face and now feels like her tongue and throat are itchy. Denies any new food or drink exposures. Denies any new household or chemical exposures. No previous allergic reactions. There is no swelling to the lip or tongue upon arrival. MD complaint: allergic reaction Onset (ago): hour(s) Exposure: unknown Associated symptoms: Reports itching and rash; Deny abdominal pain, dizziness, nausea or vomiting Treatment prior to arrival: none Previous Allergic Reaction History: none Related Data Home Medications ?Medication ?Instructions ?Recorded ?Confirmed albuterol sulfate 90 mcg/actuation 1 inh inhalation QI D 12/23/21 05/08/24 aerosol inhaler (Ventolin HFA) labetalol 200 mg tablet 200 mg PO BID 05/17/2305/08 Previous Rx's ?Medication ?Instructions ?Recorded cyclobenzaprine 10 mg tablet 10 mg PO Q8H #14 tabs ketorolac 10 mg tablet 10 mg PO TID PRN pain #10 ta bs 11/16/24 ondansetron 4 mg disintegrating 4 mg PO TID PRN nausea and 03/18/25 tablet vomiting #30 tabs Allergies Allergy/AdvReac Type Severity Reaction Status Date / Time adhesive Allergy Unknown Verified 05/26/25 15:39 amoxicillin Allergy ALGY-Hives Verified 05/26/25 15:39 Penicillins Allergy ALGY-Hives Verified 05/26/25 15:39 Sulfa (Sulfonamide Allergy ALGY-Difficulty Verified 05/26/25 15:39 Antibiotics) Breathing Review of Systems Const: Denies: fever(s), chills, body aches, fatigue or malaise Eyes: Denies: change in vision, blurry vision, photophobia, dry eyes, floaters or seeing flashes ENMT: Denies: throat pain, odynophagia, ear or mastoid pain, nasal discharge, nasal congestion or sinus pain Card: Denies: chest pain Resp: Denies: dyspnea GI: Denies: abdominal pain, nausea, vomiting or diarrhea Musc: Denies: neck pain, back pain, extremity pain, extremity swelling, joint pain or joint swelling Skin/Breast: Reports: rash and pruritus Neuro: Denies: headache(s), numbness in extremities, weakness in extremities, sensory changes or dizziness PFSH ED PFSH: Social History Smoking and tobacco/nicotine status: unknown if used tobacco/nicotine Physical Exam Const: COMMON NORMALS: no acute distress, average body habitus, patient oriented x3, no limitations, healthy appearing, alert and well nourished GENERAL APPEARANCE: cooperative ORIENTATION/CONSCIOUSNESS: Yes awake, Yes oriented to person, Yes oriented to place and Yes oriented to time HENMT: FACE & SINUS: normal facial exam; no edema MOUTH: Normal oral and palatal mucosa present, lip normal, tongue normal and Normal salivary glands and ducts present THROAT: posterior oropharynx normal and tonsils normal Eye: GENERAL EYE: appearance normal, both eyes and all related structures and normal light reflex DIRECT OPHTHALMOSCOPY: Yes normal light reflex Neck/C-Spine: COMMON NORMALS: full ROM and no lymphadenopathy GENERAL: Yes normal visual inspection, No anterior neck swelling and No submandibular swelling Resp: COMMON NORMALS: normal respiratory effort and clear to auscultation bilaterally AUSCULTATION: clear to auscultation bilaterally Cardio: COMMON NORMALS: regular rate and regular rhythm RATE: regular rate RHYTHM: regular rhythm Extremity: GENERAL: Yes normal exam except as noted Neuro: COMMON NORMALS: patient oriented x3 SENSORIUM/ORIENTATION: Yes alert, Yes oriented to person, Yes oriented to place and Yes oriented to time Skin: NARRATIVE SKIN EXAM: mild irritative dermatitis face RASHES: rashes noted Course Vital Signs: Vital signs: Vital Signs Temperature 98.6 F 05/26/25 15:34 Pulse Rate 64 05/26/25 16:25 Blood Pressure 133/82 05/26/25 16:25 Pulse Oximetry 100 05/26/25 16:25 Oxygen Delivery Me thod Room Air 05/26/25 16:25 MDM - Allergic Reaction Medical Decision Making Patient was treated here with IV Solu-Medrol, Pepcid, Benadryl and on reexamination she is resting comfortably in no acute distress. She has not had any progression of symptoms. She feels comfortable going home. Will have her continue antihistamines every 4-6 hours as needed. Return to ED precautions were discussed with patient who verbalized understanding. Differential Diagnosis Likely anaphylaxis, allergic reaction, angioedema, contact dermatitis, adverse reaction to drug and urticaria Medical Records I reviewed the patient's medical records. No radiology studies performed this visit Discharge Plan Discharge Patient Disposition: Home Clinical Impression: Allergic reaction Qualifiers: Encounter type: initial encounter Qualified Code(s): T78.40XA - Allergy, unspecified, initial encounter Condition: Stable Prescriptions: No Action albuterol sulfate [Ventolin HFA] 90 mcg/actuation HFA aerosol inhaler 1 inh inhalation QID labetalol 200 mg tablet 200 mg PO BID ketorolac 10 mg tablet 10 mg PO TID PRN (Reason: pain) Qty: 10 0RF cyclobenzaprine 10 mg tablet 10 mg PO Q8H Qty: 14 0RF ondansetron 4 mg tablet,disintegrating 4 mg PO TID PRN (Reason: nausea and vomiting) Qty: 30 0RF Discharge Orders: Discharge ED (Routine); Ordered 05/26/25 Ordered By: Janeth John Patient Instructions: Allergic Reaction, Patient Portal & [facility] Instructions Activity Restrictions/Additional Instructions: As we discussed, at time of discharge you reportedly are feeling better. We discussed returning to the emergency department for onset of worsening symptoms, lip or tongue swelling, difficulty swallowing or breathing, or any other concerns you may have. You may continue antihistamines every 4-6 hours as needed. You may follow-up with primary care later this week if symptoms are not improving. Print Language: Libyan Coding Level of Care Code ED [employer] for Lorena Stringer
[2025-05-26] MEDS: diphenhydrAMINE 50 mg/mL SDV 1mL IVP (16:12)
[2025-05-26] MEDS: methylPREDNISolone sod succ 125 mg/2 mL INJ IVP (16:12)
[2025-05-26 16:25] VITALS: BP 133/82; PULSE 64; O2SAT 100
[2025-05-26 17:15] VITALS: BP 118/77; PULSE 57; O2SAT 100
== END 2025-05-26 17:17 | disposition home or self-care (01) ==
PROVIDERS: Emergency Provider Physician Assistant
DX: T78.40XA Allergy, unspecified, initial encounter (principal); X58.XXXA Exposure to other specified factors, initial encounter
CPT/HCPCS: 96374; 96375; 99284; J1200; J2919; J3490